=== PATIENT | female | born 1965 | race Caucasian/White ===

== ENCOUNTER 2017-01-25 16:51 | Emergency (ER) | payer SELFPAY ==
--- NOTE | 2017-01-25 17:37 | NUR ---
PT DECIDED NOT TO BE SEEN TODAY.
== END 2017-01-25 17:30 | disposition left against medical advice (07) ==
LOC: ER 16:54
DX: Z53.21 Procedure and treatment not carried out due to patient leaving prior to being seen by health care provider (principal)

== ENCOUNTER 2017-04-20 10:36 | Emergency (ER) | payer BC ==
[~2017-04-20] VITALS: Ht 172.7 cm; Wt 52.2 kg
--- NOTE | 2017-04-20 11:55 | NUR ---
DR DEL VALLE MADE PATEINT AWARE OF TEST RESULTS. WILL BE WA HOME.
[2017-04-20] MEDS ORDERED: OSELTAMIVIR PHOSPHATE 75 MG CAPSULE PO ONE (12:00)
[2017-04-20] MEDS ORDERED: GUAIFENESIN/CODEINE 5 ML LIQUID UDC PO ONE (12:00)
--- NOTE | 2017-04-20 12:04 | NUR ---
Patient discharged to home in stable conditon. Written and verbal after care instructions given. Patient verbalizes understanding of instructions.
[2017-04-20] MEDS ORDERED: OSELTAMIVIR PHOSPHATE 75 MG CAPSULE ONE (12:14)
[2017-04-20] MEDS ORDERED: GUAIFENESIN/CODEINE 5 ML LIQUID UDC ONE (12:14)
== END 2017-04-20 12:07 | disposition home or self-care (01) ==
LOC: ER 10:36
DX: J10.1 Influenza due to other identified influenza virus with other respiratory manifestations (principal); Z88.2 Allergy status to sulfonamides
CPT/HCPCS: 87400; 99284; A4663